=== PATIENT | female | born 1975 | race Caucasian/White ===

== ENCOUNTER 2017-10-10 16:39 | Observation (INO) | payer MEDICAID ==
[~2017-10-10] VITALS: Ht 157.5 cm; Wt 75.0 kg
[2017-10-10 16:59] VITALS: BP 114/78; PULSE 70; RESP 16; TEMP 98.7; O2SAT 100
[2017-10-10] MEDS ORDERED: PRED10 PO (17:24)
[2017-10-10] MEDS ORDERED: GABA300C5 PO (17:24)
--- NOTE | 2017-10-10 18:26 | PD ---
HPI Chief Complaint: Headache Time Seen by Provider: 18:00 Travel History International Travel<30 days: No Contact w/Intl Traveler<30days: No Traveled to known affect area: No History of Present Illness HPI 42-year-old female complains of right-sided headache, right sided neck pain, weakness of the right arm right leg and numbness and tingling sensation of the right arm right leg. Patient states that the symptoms started 4 days ago. Patient states that she woke up with it. Patient was seen at [facility] in [place] 4 days ago. Patient states that she was admitted and had CT scan of the brain, MRI done and blood test done at that time. Patient also had carotid ultrasound done at that time. 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 Patient was given prescription for gabapentin and prednisone. Patient states that she had persistent symptoms despite taking the medication. Patient states that the right-sided headache is burning pain localized the right side of forehead, the right side the neck. Patient denies any visual change. Patient denies any nausea vomiting. Patient denies any drooping or weakness of the muscle of the face. Patient denies any chest pain or shortness of breath. Patient denies abdominal pain. Patient states that she has numbness tingling sensation in the right arm right leg and along with a weakness of the right arm and right leg. Patient denies any nausea vomiting diarrhea. Patient denies any fever chills. Patient denies any back pain. Patient denies any recent injury. Patient is on Depo shot. Patient denies history of hypertension, diabetes, hyperlipidemia. Patient is a non-smoker. Patient denies alcohol use. PFSH Past Medical History Neurologic: Yes (BELLS PALSY) Tetanus Vaccination: < 5 Years ?: Not Past Surgical History Cholecystectomy: Yes Social History Alcohol Use: No Tobacco Use: No Substance Use: No Allergies-Medications (Allergen,Severity, Reaction): Coded Allergies: gabapentin (Verified Adverse Reaction, Mild, 10/10/17) Reported Meds & Prescriptions Reported Meds & Active Scripts Active Reported Prednisone 10 Mg Tab 10 Mg PO DAILY Gabapentin 300 Mg Cap 300 Mg PO HS Review of Systems General / Constitutional: No: Fever Eyes: No: Visual changes HENT: Positive: Headaches, Neck Pain Cardiovascular: No: Chest Pain or Discomfort Respiratory: No: Shortness of Breath Gastrointestinal: No: Abdominal Pain Genitourinary: No: Dysuria Musculoskeletal: Positive: Weakness, No: Pain Skin: No Rash Neurologic: Positive: Weakness, Paresthesia Psychiatric: No: Depression Endocrine: No: Polydipsia Hematologic/Lymphatic: No: Easy Bruising Physical Exam Narrative GENERAL: Well-nourished, well-developed patient. SKIN: Focused skin assessment warm/dry. HEAD: Normocephalic. No rash noted on the right side of face. EYES: No scleral icterus. No injection or drainage. Pupils 2 mm equal reactive. NECK: Supple, trachea midline. No JVD or lymphadenopathy. CARDIOVASCULAR: Regular rate and rhythm without murmurs, gallops, or rubs. RESPIRATORY: Breath sounds equal bilaterally. No accessory muscle use. GASTROINTESTINAL: Abdomen soft, non-tender, nondistended. MUSCULOSKELETAL: No cyanosis, or edema. BACK: Nontender without obvious deformity. No CVA tenderness. Neurologic exam: Patient is awake and alert oriented 3. Patient has decreased light touch sensation on the right on the right leg. Patient has mild weakness on the right arm right leg. Patient is able to lift the right arm off the bed and the right leg off the bed. Data Data Last Documented VS Vital Signs Date Time Temp Pulse Resp B/P (MAP) Pulse Ox O2 Delivery O2 Flow Rate FiO2 10/10/17 19:59 20 98 Room Air 10/10/17 16:59 98.7 70 114/78 (90) Orders Orders Electrocardiogram (10/10/17 18:26) Complete Blood Count With Diff (10/10/17 18:26) Comprehensive Metabolic Panel (10/10/17 18:26) Prothrombin Time / Inr (Pt) (10/10/17 18:26) Act Partial Throm Time (Ptt) (10/10/17 18:26) C-Reactive Protein (Crp) (10/10/17 18:26) Urinalysis - C+S If Indicated (10/10/17 18:26) Westergren Sedimentation Rate (10/10/17 18:26) Thyroid Stimulating Hormone (10/10/17 18:26) Chest, Single Ap (10/10/17 18:26) Iv Access Insert/Monitor (10/10/17 18:26) Ecg Monitoring (10/10/17 18:26) Oximetry (10/10/17 18:26) Drug Screen, Random Urine (10/10/17 18:26) Mri Brain W&W/O Contrast (10/10/17 18:26) Mra Brain W/O Contrast (Cow) (10/10/17 18:26) Mra Carotids W Contrast (10/10/17 18:26) Mri C Spine W&W/O Contrast (10/10/17 ) Lorazepam Inj (Ativan Inj) (10/10/17 20:00) Gadodiamide Pf Inj (Omniscan Pf Inj) (10/10/17 20:43) Labs Laboratory Tests Test 10/10/17 18:40 White Blood Count 14.5 TH/MM3 Red Blood Count 4.73 MIL/MM3 Hemoglobin 13.9 GM/DL Hematocrit 41.7 % Mean Corpuscular Volume 88.3 FL Mean Corpuscular Hemoglobin 29.4 PG Mean Corpuscular Hemoglobin Concent 33.3 % Red Cell Distribution Width 13.8 % Platelet Count 256 TH/MM3 Mean Platelet Volume 8.9 FL Neutrophils (%) (Auto) 45.5 % Lymphocytes (%) (Auto) 42.8 % Monocytes (%) (Auto) 5.8 % Eosinophils (%) (Auto) 5.0 % Basophils (%) (Auto) 0.9 % Neutrophils # (Auto) 6.6 TH/MM3 Lymphocytes # (Auto) 6.2 TH/MM3 Monocytes # (Auto) 0.8 TH/MM3 Eosinophils # (Auto) 0.7 TH/MM3 Basophils # (Auto) 0.1 TH/MM3 CBC Comment AUTO DIFF Differential Total Cells Counted 100 Neutrophils % (Manual) 49 % Lymphocytes % 45 % Monocytes % 3 % Eosinophils % 3 % Neutrophils # (Manual) 7.1 TH/MM3 Differential Comment FINAL DIFF MANUAL Platelet Estimate NORMAL Platelet Morphology Comment NORMAL Erythrocyte Sedimentation Rate 12 mm/hr Prothrombin Time 9.9 SEC Prothromb Time International Ratio 1.0 RATIO Activated Partial Thromboplast Time 22.7 SEC Urine Color YELLOW Urine Turbidity HAZY Urine pH 6.0 Urine Specific [place] 1.024 Urine Protein NEG mg/dL Urine Glucose (UA) NEG mg/dL Urine Ketones NEG mg/dL Urine Occult Blood TRACE Urine Nitrite NEG Urine Bilirubin NEG Urine Urobilinogen LESS THAN 2.0 MG/DL Urine Leukocyte Esterase SMALL Urine RBC 4 /hpf Urine WBC 4 /hpf Urine Squamous Epithelial Cells 2 /hpf Urine Calcium Oxalate Crystals MOD /hpf Urine Bacteria RARE /hpf Urine Mucus FEW /lpf Microscopic Urinalysis Comment CULT NOT INDICATED Blood Urea Nitrogen 11 MG/DL Creatinine 0.63 MG/DL Random Glucose 86 MG/DL Total Protein 7.6 GM/DL Albumin 3.7 GM/DL Calcium Level 9.0 MG/DL Alkaline Phosphatase 82 U/L Aspartate Amino Transf (AST/SGOT) 44 U/L Alanine Aminotransferase (ALT/SGPT) 95 U/L Total Bilirubin 0.3 MG/DL Sodium Level 141 MEQ/L Potassium Level 3.8 MEQ/L Chloride Level 106 MEQ/L Carbon Dioxide Level 27.0 MEQ/L Anion Gap 8 MEQ/L Estimat Glomerular Filtration Rate 103 ML/MIN C-Reactive Protein LESS THAN 0.29 MG/DL Thyroid Stimulating Hormone 3rd Gen 3.190 uIU/ML Urine Opiates Screen NEG Urine Barbiturates Screen POS Urine Amphetamines Screen NEG Urine Benzodiazepines Screen NEG Urine Cocaine Screen NEG Urine Cannabinoids Screen NEG MDM Medical Decision Making Medical Screen Exam Complete: Yes Emergency Medical Condition: Yes Interpretation(s) 2023 PM. CBC WBC 14.5. Hemoglobin 13.9 hematocrit 41.7. 45 lymphocytes. CMP within normal limits. AST 44. ALT 95. TSH normal. Urine drug screen positive for barbiturates. UA positive for 4 RBC, 4 WBC, rare bacteria. 21:38 PM. Last Impressions Neck Magnetic Resonance Angiography 10/10/171825 Signed Impressions: CONCLUSION: 1. Negative MRA carotids. Percent stenosis is calculated using the diameter of the stenotic region over t he diameter of the normal distal internal carotid artery Head Magnetic Resonance Angiography 10/10/171825 Signed Impressions: CONCLUSION: 1. MRA brain within normal limits for age. Chest X-Ray 10/10/171825 Signed Impressions: CONCLUSION: No active disease. Brain MRI 10/10/171825 Signed Impressions: CONCLUSION: 1. Examination within normal limits for age. Cervical Spine MRI 10/10/17 0000 Signed Impressions: CONCLUSION: 1. Negative MRI of the cervical spine with and without contrast. Differential Diagnosis Differential diagnosis including neuralgia, TIA, CVA. Narrative Course 42-year-old female complains of burning sensation on the right side of the head and the face, burning sensation in the right-sided neck, weakness and numbness and tingling sensation in the right arm and right leg. Patient was admitted and had full workup at [facility]. Patient states that she was diagnosed with Hoffmann's palsy. Diagnosis Primary Impression: Right sided weakness Additional Impression: Cephalgia Qualified Codes: R51 - Headache Admitting Information Admitting Physician Requests: Observation Alcides Ulloa MD October 10, 2017 18:26
--- NOTE | 2017-10-10 18:47 | RADRPT ---
EXAM DATE: 10/10/2017 6:43 PM EDT AGE/SEX: 42 years / Female INDICATIONS: Short of breath CLINICAL DATA: This is the patient's initial encounter. Patient reports that signs and symptoms have been present for 4 - 6 days and indicates a pain score of 0/10. MEDICAL/SURGICAL HISTORY: None. None. COMPARISON: No prior [place] exams available for comparison. FINDINGS: A single AP view of the chest demonstrates the lungs to be symmetrically aerated without evidence of mass, infiltrate or effusion. The cardiomediastinal contours are unremarkable. Osseous structures a re intact. CONCLUSION: No active disease. Electronically signed by: Nikko Aiken MD 10/10/2017 6:45 PM EDT
[2017-10-10 19:18] LABS: AUTOMATED NEUTROPHIL # 6.6 TH/MM3 (1.8-7.7); BASOPHIL # 0.1 TH/MM3 (0-0.2); BASOPHIL % 0.9 % (0.0-2.0); EOSINOPHIL # 0.7 TH/MM3 (0-0.4); HEMATOCRIT 41.7 % (35.0-46.0); HEMOGLOBIN 13.9 GM/DL (11.6-15.3); LYMPH % 42.8 % (9.0-44.0); LYMPHOCYTE # 6.2 TH/MM3 (1.0-4.8); MEAN CELL VOLUME 88.3 FL (80.0-100.0); MEAN CORPUSCULAR HEMOGLOBIN 29.4 PG (27.0-34.0); MEAN CORPUSCULAR HGB CONC 33.3 % (32.0-36.0); MEAN PLATELET VOLUME 8.9 FL (7.0-11.0); MONO % 5.8 % (0.0-8.0); MONOCYTE # 0.8 TH/MM3 (0-0.9); NEUT % 45.5 % (16.0-70.0); PLATELET COUNT 256 TH/MM3 (150-450); RED BLOOD COUNT 4.73 MIL/MM3 (4.00-5.30); RED CELL DISTRIBUTION WIDTH 13.8 % (11.6-17.2); WHITE BLOOD COUNT 14.5 TH/MM3 (4.0-11.0)
[2017-10-10 19:25] LABS: PROTHROMBIN TIME - PATIENT 9.9 SEC (9.8-11.6)
[2017-10-10 19:26] LABS: BACTERIA, URINE RARE /hpf; BILIRUBIN, URINE NEG (NEG); BLOOD, URINE TRACE (NEG); CALCIUM OXALATE CRYSTALS,URINE MOD /hpf; GLUCOSE,URINE NEG (NEG); KETONE, URINE NEG (NEG); MUCUS URINE FEW /lpf (OCC); NITRITE,URINE NEG (NEG); SQUAMOUS EPITHELIAL CELL URINE 2 /hpf (0-5); URINE COLOR YELLOW (YELLW/STRAW); URINE LEUKOCYTE ESTERASE SMALL (NEG)
[2017-10-10 19:37] LABS: ALBUMIN 3.7 GM/DL (3.4-5.0); AST (GOT) 44 U/L (15-37); BLOOD UREA NITROGEN 11 MG/DL (7-18); CHLORIDE 106 MEQ/L (98-107); CREATININE 0.63 MG/DL (0.50-1.00); GLOMERULAR FILTRATION RATE 103 ML/MIN (>89); GLUCOSE,RANDOM 86 MG/DL (74-106); SODIUM (NA) 141 MEQ/L (136-145)
[2017-10-10 19:38] LABS: ALT (GPT) 95 U/L (10-53); C-REACTIVE PROTEIN LESS THAN 0.29 MG/DL (0.00-0.30)
[2017-10-10 19:47] LABS: ALKALINE PHOSPHATASE 82 U/L (45-117); TOTAL BILIRUBIN ADULT 0.3 MG/DL (0.2-1.0); TOTAL PROTEIN 7.6 GM/DL (6.4-8.2)
[2017-10-10 19:59] VITALS: RESP 20; O2SAT 98
[2017-10-10] MEDS ORDERED: LORazepam 2 MG/ML VIAL IV PUSH ONE (20:00)
[2017-10-10 20:16] LABS: LYMPHOCYTES 45 % (9-44); MONOCYTES 3 % (0-8); NEUTROPHIL # MANUAL DIFF 7.1 TH/MM3 (1.8-7.7); POLYS (SEG NEUTROPHILS) 49 % (16-70)
[2017-10-10] MEDS ORDERED: GADODIAMIDE PF 287 MG/ML 20 ML VIAL (for RAD MRI) IVCONTRAST ONE (20:43)
--- NOTE | 2017-10-10 20:58 | RADRPT ---
EXAM DATE: 10/10/2017 8:37 PM EDT AGE/SEX: 42 years / Female INDICATIONS: Left sided weakness. Facial pain. CLINICAL DATA: This is the patient's initial encounter. Patient reports that signs and symptoms have been present for 1 day and indicates a pain score of 4/10. MEDICAL/SURGICAL HISTORY: None. Cholecystectomy. COMPARISON: No prior [facility] exams available for comparison. TECHNIQUE: 3D [id number] MRA was performed. Source images, multiplanar STS MIP, and 3D volum e MIP reconstructions were reviewed. FINDINGS: There is excellent visualization of the major intracranial arteries out to the second-order branch ve ssels. There is no evidence for aneurysm, vessel truncation or stenosis, and no evidence for vascula r malformation. CONCLUSION: 1. MRA brain within normal limits for age. Electronically signed by: Nikko Aiken MD 10/10/2017 8:57 PM EDT
--- NOTE | 2017-10-10 21:19 | RADRPT ---
EXAM DATE: 10/10/2017 9:11 PM EDT AGE/SEX: 42 years / Female INDICATIONS: Left sided weakness. Facial pain. CLINICAL DATA: This is the patient's initial encounter. Patient reports that signs and symptoms have been present for 1 day and indicates a pain score of 4/10. MEDICAL/SURGICAL HISTORY: None. Cholecystectomy. COMPARISON: No prior [facility] exams available for comparison. TECHNIQUE: Multiplanar, multisequence examination of the brain was performed without and with 20cc ml Omniscan (gadodiamide) contrast as a single exam dose. FINDINGS: No intracranial mass or shift. No hydrocephalus. No abnormal extra-axial fluid collections. Postcontr ast there is no abnormal enhancement. No recent infarct. CONCLUSION: 1. Examination within normal limits for age. Electronically signed by: Nikko Aiken MD 10/10/2017 9:18 PM EDT
--- NOTE | 2017-10-10 21:20 | RADRPT ---
EXAM DATE: 10/10/2017 9:12 PM EDT AGE/SEX: 42 years / Female INDICATIONS: Weakness. Facial pain. Left side weakness. CLINICAL DATA: This is the patient's initial encounter. Patient reports that signs and symptoms have been present for 1 day and indicates a pain score of 4/10. MEDICAL/SURGICAL HISTORY: None. Cholecystectomy. COMPARISON: No prior [facility] exams available for comparison. TECHNIQUE: Multiplanar, multisequence MRI examination of the cervical spine was performed without an d with 20 cc ml Omniscan (gadodiamide) contrast as a single exam dose. FINDINGS: There is normal alignment of the cervical spine. No fracture or spondylolisthesis. No discrete disc p rotrusions. There is no canal or foraminal stenosis. Postcontrast images reveal no abnormal enhancing lesions. No cord signal abnormality. CONCLUSION: 1. Negative MRI of the cervical spine with and without contrast. Electronically signed by: Nikko Aiken MD 10/10/2017 9:19 PM EDT
--- NOTE | 2017-10-10 21:30 | RADRPT ---
EXAM DATE: 10/10/2017 9:19 PM EDT AGE/SEX: 42 years / Female INDICATIONS: Left sided weakness. Facial pain. CLINICAL DATA: This is the patient's initial encounter. Patient reports that signs and symptoms have been present for 1 day and indicates a pain score of 4/10. MEDICAL/SURGICAL HISTORY: None. Cholecystectomy. COMPARISON: No prior [place] exams available for comparison. TECHNIQUE: 20cc ml Omniscan (gadodiamide) contrast infused MRA (single exam dose) of the extracrani al circulation was performed using a neurovascular coil. Postprocessing was performed, including rot ating sub-volume maximum intensity projections of each carotid artery, rotating full-volume maximum i ntensity projections of both carotid arteries, sagittal and coronal sliding thin-slab reformations of each carotid artery, and left oblique sliding thin-slab reformation through the aortic arch to inclu de the origin of the arch branch vessels. FINDINGS: Grade vessel origins are patent. Common carotid and internal carotid arteries are patent. There is no stenosis. Both vertebral arteries are patent within the neck with the right vertebral dominant. CONCLUSION: 1. Negative MRA carotids. Percent stenosis is calculated using the diameter of the stenotic region over the diameter of the nor mal distal internal carotid artery Electronically signed by: Nikko Aiken MD 10/10/2017 9:29 PM EDT
[2017-10-10] MEDS ORDERED: ACETAMINOPHEN 325 MG TAB PO PRN (22:00)
[2017-10-10] MEDS ORDERED: MAGNESIUM HYDROXIDE SUSP 30 ML CUP PO PRN (22:00)
[2017-10-10] MEDS ORDERED: NALOXONE HCL 0.4 MG/ML AMP IV PUSH PRN (22:00)
[2017-10-10] MEDS ORDERED: BISACODYL 10 MG SUPP RECTAL PRN (22:00)
[2017-10-10] MEDS ORDERED: SENNOSIDES 8.6 MG TAB PO PRN (22:00)
[2017-10-10] MEDS ORDERED: SODIUM CHLORIDE 0.9% FLUSH 10 ML FLUSH IV FLUSH PRN (22:00)
[2017-10-10] MEDS ORDERED: LACTULOSE SYRUP 20 GM/30 ML CUP PO PRN (22:00)
[2017-10-10 22:39] VITALS: BP 110/70; PULSE 82; RESP 18; O2SAT 98
[2017-10-10] MEDS: SODIUM CHLOR 0.9% 1000 ML INJ 1,000 ML IV SCH (22:53)
--- NOTE | 2017-10-10 22:55 | HHI.HP ---
HPI Service [facility] Primary Care Physician Wander Jane MD Admission Diagnosis Right-sided weakness. Cephalgia. Diagnoses: Chief Complaint: Right-sided headache, right-sided weakness. Travel History International Travel<30 Days: No Contact w/Intl Traveler <30 Da: No Traveled to Known Affected Are: No History of Present Illness Ms. Vazquez is a 42-year-old female with no significant medical history who presents to the emergency department on 10/10/2017 due to right-sided weakness and right-sided headache that started on 10/06/2017. On , 10/06/2017 patient started having numbness and weakness of the right side as well as right- sided headache. Upon advice of her primary care physician, she went to a local hospital -[facility] where she was diagnosed with Hoffmann's palsy and was discharged the following day 10/07/2017 on prednisone and gabapentin. Patient does not recall seeing a neurologist. Due to persistent symptoms, patient decided to come to the emergency department. She denies any chest pain , shortness of breath, fever or chills. No changes in bowel or bladder habits. Review of Systems Except as stated in HPI: all other systems reviewed are Neg Past Family Social History Past Medical History Possible Hoffmann's palsy Past Surgical History Cholecystectomy Reported Medications Gabapentin 300 mg nightly Prednisone probably 40 mg daily. Allergies: Coded Allergies: gabapentin (Verified Adverse Reaction, Mild, 10/10/17) Family History No family history of cancer or heart disease. Social History Denies using tobacco, alcohol, illicit drugs. Physical Exam Vital Signs Vital Signs Date Time Temp Pulse Resp B/P (MAP) Pulse Ox O2 Delivery O2 Flow Rate FiO2 10/10/17 19:59 20 98 Room Air 10/10/17 16:59 98.7 70 16 114/78 (90) 100 Physical Exam GENERAL: This is a well-nourished, well-developed patient, in no apparent distress. SKIN: No rashes, ecchymoses or lesions. Warm and dry. HEAD: Atraumatic. Normocephalic. No temporal or scalp tenderness. EYES: Pupils equal round and reactive. No injection or drainage. ENT: Nose without bleeding, purulent drainage or septal hematoma. Airway patent. NECK: Trachea midline. No lymphadenopathy. Supple, nontender, no meningeal signs. CARDIOVASCULAR: Regular rate and rhythm without murmurs, gallops, or rubs. No JVD. RESPIRATORY: Clear to auscultation. Breath sounds equal bilaterally. No wheezes , rales, or rhonchi. GASTROINTESTINAL: Abdomen soft, non-tender, nondistended. No guarding. MUSCULOSKELETAL: Extremities without clubbing, cyanosis, or edema. NEUROLOGICAL: Awake and alert. Visible right-sided facial droop as well as right eye somewhat widened. Right-sided upper and lower extremity weakness noted strength is about 3/5. Normal exam on the left side. Able to close both eyes. Unable to do purse lips. No rash or lesions noted behind ears. Laboratory Laboratory Tests Test 10/10/17 18:40 White Blood Count 14.5 Red Blood Count 4.73 Hemoglobin 13.9 Hematocrit 41.7 Mean Corpuscular Volume 88.3 Mean Corpuscular Hemoglobin 29.4 Mean Corpuscular Hemoglobin Concent 33.3 Red Cell Distribution Width 13.8 Platelet Count 256 Mean Platelet Volume 8.9 Neutrophils (%) (Auto) 45.5 Lymphocytes (%) (Auto) 42.8 Monocytes (%) (Auto) 5.8 Eosinophils (%) (Auto) 5.0 Basophils (%) (Auto) 0.9 Neutrophils # (Auto) 6.6 Lymphocytes # (Auto) 6.2 Monocytes # (Auto) 0.8 Eosinophils # (Auto) 0.7 Basophils # (Auto) 0.1 CBC Comment AUTO DIFF Differential Total Cells Counted 100 Neutrophils % (Manual) 49 Lymphocytes % 45 Monocytes % 3 Eosinophils % 3 Neutrophils # (Manual) 7.1 Differential Comment FINAL DIFF MANUAL Platelet Estimate NORMAL Platelet Morphology Comment NORMAL Erythrocyte Sedimentation Rate 12 Prothrombin Time 9.9 Prothromb Time International Ratio 1.0 Activated Partial Thromboplast Time 22.7 Urine Color YELLOW Urine Turbidity HAZY Urine pH 6.0 Urine Specific [place] 1.024 Urine Protein NEG Urine Glucose (UA) NEG Urine Ketones NEG Urine Occult Blood TRACE Urine Nitrite NEG Urine Bilirubin NEG Urine Urobilinogen LESS THAN 2.0 Urine Leukocyte Esterase SMALL Urine RBC 4 Urine WBC 4 Urine Squamous Epithelial Cells 2 Urine Calcium Oxalate Crystals MOD Urine Bacteria RARE Urine Mucus FEW Microscopic Urinalysis Comment CULT NOT INDICATED Blood Urea Nitrogen 11 Creatinine 0.63 Random Glucose 86 Total Protein 7.6 Albumin 3.7 Calcium Level 9.0 Alkaline Phosphatase 82 Aspartate Amino Transf (AST/SGOT) 44 Alanine Aminotransferase (ALT/SGPT) 95 Total Bilirubin 0.3 Sodium Level 141 Potassium Level 3.8 Chloride Level 106 Carbon Dioxide Level 27.0 Anion Gap 8 Estimat Glomerular Filtration Rate 103 C-Reactive Protein LESS THAN 0.29 Thyroid Stimulating Hormone 3rd Gen 3.190 Urine Opiates Screen NEG Urine Barbiturates Screen POS Urine Amphetamines Screen NEG Urine Benzodiazepines Screen NEG Urine Cocaine Screen NEG Urine Cannabinoids Screen NEG Result Diagram: 10/10/17183910/10/171839 Imaging Last Impressions Neck Magnetic Resonance Angiography 10/10/171825 Signed Impressions: CONCLUSION: 1. Negative MRA carotids. Percent stenosis is calculated using the diameter of the stenotic region over t he diameter of the normal distal internal carotid artery Head Magnetic Resonance Angiography 10/10/171825 Signed Impressions: CONCLUSION: 1. MRA brain within normal limits for age. Chest X-Ray 10/10/171825 Signed Impressions: CONCLUSION: No active disease. Brain MRI 10/10/171825 Signed Impressions: CONCLUSION: 1. Examination within normal limits for age. Cervical Spine MRI 10/10/17 0000 Signed Impressions: CONCLUSION: 1. Negative MRI of the cervical spine with and without contrast. Caprini VTE Risk Assessment Caprini VTE Risk Assessment: No/Low Risk (score <= 1) Caprini Risk Assessment Model Point Value = 1 Point Value = 2 Point Value = 3 Point Value = 5 Age 41-60 Minor surgery BMI > 25 kg/m2 Swollen legs Varicose veins or History of unexplained or recurrent spontaneous Oral contraceptives or hormone replacement Sepsis (< 1 month) Serious lung disease, including pneumonia (< 1 month) Abnormal pulmonary function Acute myocardial infarction Congestive heart failure (< 1 month) History of inflammatory bowel disease Medical patient at bed rest Age 61-74 Arthroscopic surgery Major open surgery (> 45 min) Laparoscopic surgery (> 45 min) Malignancy Confined to bed (> 72 hours) Immobilizing plaster cast Central venous access Age >= 75 History of VTE Family history of VTE Factor V Leiden Prothrombin [id number] Lupus anticoagulant Anticardiolipin antibodies Elevated serum homocysteine Heparin-induced thrombocytopenia Other congenital or acquired thrombophilia Stroke (< 1 month) Elective arthroplasty Hip, pelvis, or leg fracture Acute spinal cord injury (< 1 month) Prophylaxis Regimen Total Risk Factor Score Risk Level Prophylaxis Regimen 0-1 Low Early ambulation 2 Moderate Order ONE of the following: *Sequential Compression Device (SCD) *Heparin 5000 units SQ BID 3-4 Higher Order ONE of the following medications: *Heparin 5000 units SQ TID *Enoxaparin/Lovenox 40 mg SQ daily (WT < 150 kg, CrCl > 30 mL/min) *Enoxaparin/Lovenox 30 mg SQ daily (WT < 150 kg, CrCl > 10-29 mL/min) *Enoxaparin/Lovenox 30 mg SQ BID (WT < 150 kg, CrCl > 30 mL/min) AND/OR *Sequential Compression Device (SCD) 5 or more Highest Order ONE of the following medications: *Heparin 5000 units SQ TID (Preferred with Epidurals) *Enoxaparin/Lovenox 40 mg SQ daily (WT < 150 kg, CrCl > 30 mL/min) *Enoxaparin/Lovenox 30 mg SQ daily (WT < 150 kg, CrCl > 10-29 mL/min) *Enoxaparin/Lovenox 30 mg SQ BID (WT < 150 kg, CrCl > 30 mL/min) AND *Sequential Compression Device (SCD) Assessment and Plan Problem List: (1) Hoffmann's palsy ICD Code: G51.0 - Hoffmann's palsy (2) Right sided weakness ICD Code: R53.1 - Weakness Status: Acute Assessment and Plan Ms. Vazquez is a pleasant 42-year-old female with no significant medical history who presents to the emergency department today due to persistent right-sided weakness, right-sided facial droop and right eye widening. Probable Hoffmann's Palsy Right sided Headache -Neurology consulted. -Will start patient on Prednisone 50mg Qday x 5 days then taper. She took 40mg of Prednisone today. -Start Valcyclovir 1g TID X 7 days. -Fioricet for Headache. Patient reports no relief of headache with Acetaminophen, NSAIDs. -Artificial tears for the right eye. Full code. SCDs. Kami Dunlap DO October 10, 2017 10:55 pm
[2017-10-10] MEDS: ACETAMIN 325 MG/BUTALBITAL 50 MG/CAFFEINE 40 MG TAB PO PRN (23:14)
[2017-10-10] MEDS ORDERED: ARTIFICIAL TEARS OPTH SOLN 15 ML BTL RIGHT EYE PRN (23:15)
[2017-10-10] MEDS ORDERED: valACYclovir HCL 500 MG TAB PO ONE (23:15)
[2017-10-10 23:28] VITALS: BP 128/76; PULSE 93; O2SAT 97
[2017-10-11 04:35] VITALS: BP 125/79; PULSE 118; RESP 16; TEMP 98.4; O2SAT 98
[2017-10-11] MEDS: valACYclovir HCL 500 MG TAB PO SCH ×3 (05:57→21:24)
[2017-10-11 08:08] VITALS: BP 111/66; PULSE 99; RESP 18; TEMP 98.4; O2SAT 95
[2017-10-11 08:17] VITALS: O2SAT 96
[2017-10-11] MEDS: SODIUM CHLORIDE 0.9% FLUSH 10 ML FLUSH IV FLUSH SCH ×2 (09:01→21:00)
[2017-10-11] MEDS: ACETAMIN 325 MG/BUTALBITAL 50 MG/CAFFEINE 40 MG TAB PO PRN ×2 (09:01→17:44)
[2017-10-11] MEDS: predniSONE 50 MG TAB PO SCH (09:02)
[2017-10-11] MEDS: SODIUM CHLOR 0.9% 1000 ML INJ 1,000 ML IV SCH (10:54)
[2017-10-11 12:28] VITALS: BP 118/70; PULSE 79; RESP 18; TEMP 97.8; O2SAT 99
[2017-10-11] MEDS ORDERED: MORPHINE SULFATE 2 MG/ML SYRINGE IV PUSH ONE (13:45)
--- NOTE | 2017-10-11 13:47 | HHI.PR ---
Subjective Remarks Follow up facial numbness, headache. Patient reports significant pain in the right occipital region. She still has facial droop and tongue numbness. Denies extremity numbness, weakness. Objective Vitals Vital Signs Date Time Temp Pulse Resp B/P (MAP) Pulse Ox O2 Delivery O2 Flow Rate FiO2 10/11/17 12:28 97.8 79 18 118/70 (86) 99 10/11/17 08:17 96 21 10/11/17 08:08 98.4 99 18 111/66 (81) 95 10/11/17 04:35 98.4 118 16 125/79 (94) 98 10/11/17 00:14 15 10/10/17 23:28 93 128/76 (93) 97 10/10/17 22:39 82 18 110/70 (83) 98 Room Air 10/10/17 19:59 20 98 Room Air 10/10/17 16:59 98.7 70 16 114/78 (90) 100 Result Diagram: 10/10/17183910/10/171839 Imaging Last Impressions Neck Magnetic Resonance Angiography 10/10/171825 Signed Impressions: CONCLUSION: 1. Negative MRA carotids. Percent stenosis is calculated using the diameter of the stenotic region over t he diameter of the normal distal internal carotid artery Head Magnetic Resonance Angiography 10/10/171825 Signed Impressions: CONCLUSION: 1. MRA brain within normal limits for age. Chest X-Ray 10/10/171825 Signed Impressions: CONCLUSION: No active disease. Brain MRI 10/10/171825 Signed Impressions: CONCLUSION: 1. Examination within normal limits for age. Cervical Spine MRI 10/10/17 0000 Signed Impressions: CONCLUSION: 1. Negative MRI of the cervical spine with and without contrast. Objective Remarks General: No acute distress. Heart: Regular rate and rhythm. No murmur. Lungs: Clear to auscultation bilaterally. No wheezes, rales, or rhonchi. Breathing is nonlabored. Abdomen: Soft, nontender, nondistended. Extremities: No lower extremity edema. Psych: Alert and oriented. Neuro: Normal speech. Right-sided facial droop is noted. 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 Probable Hoffmann's palsy: Patient has right-sided headache, which is not improving. Will give one-time dose of morphine. Neurology consult is pending. Had workup in [place]. Will attempt to obtain records. Continue steroids, Valacyclovir, gabapentin. 2. Leukocytosis: Likely due to steroids. 3. DVT prophylaxis: SCDs. Nahun Gomez MD October 11, 2017 13:47
--- NOTE | 2017-10-11 14:02 | EKG ---
Date Performed: 10/10/2017 Time Performed: 18:44:15 PTAGE: 42 years EKG: Sinus rhythm NORMAL ECG NO PREVIOUS TRACING DOCTOR: Chu Davila Interpretating Date/Time 10/11/2017 14:00:06
[2017-10-11] MEDS ORDERED: MORPHINE SULFATE 4 MG/ML INJ IV PUSH ONE (14:30)
[2017-10-11] MEDS: NS + KCL 20 MEQ INJ 1,000 ML IV SCH (14:32)
--- NOTE | 2017-10-11 15:35 | MB ---
cc: Max Khalil MD, PhD DATE: 10/11/2017 HISTORY OF PRESENT ILLNESS: Ms. Vazquez is a 42-year-old female who last week developed numbness in the left side of her body involving the face and arm, went to the ER at [facility], was thought to have Hoffmann's palsy, was treated with prednisone. Her symptoms persisted and she began to notice weakness on the right side and a right-sided headache and came to the ER here. She still has headache. Denies any speech difficulty. MEDICATIONS: Medications were Gabapentin 300 mg daily and prednisone 40 mg daily. ALLERGIES: "GABAPENTIN". NEUROLOGICAL EXAMINATION: Higher cortical functions are normal. Cranial Nerves: she has mild weakness of right side of the face. She has got giveaway weakness, right arm and right leg compared with the left rated at 4/5 on the right, 5/5 on the left. Reflexes are symmetric. Sensory Exam: Diminished on the right side of her body to all modalities. Reflexes symmetric. There is no Babinski sign present. IMAGING STUDIES: MRI of the brain is normal. MRI of the cervical spine is normal. MRA of the neck negative. No carotid stenosis. MRA brain normal. LABORATORY DATA: White count 14,500, hemoglobin 13.9, hematocrit 41.7%, platelet count 256,000. Sedimentation rate is 12. Sodium is 141, potassium 3.8, chloride 106, CO2 is 27, the BUN is 11, creatinine 0.63, glucose 86, AST 44, ALT 95. PT 9.9, INR 1, aPTT 22.7. Tox screen positive for barbiturates. IMPRESSION: Definitively on exam, she has right facial weakness suggestive of a Hoffmann's palsy. She also relates weakness of right arm and right leg. There is no evidence of any stroke on the MRI. Therefore, this may be migraine variant. RECOMMENDATIONS: We will start her on Topamax 25 mg b.i.d. for her headache, possible migraine. Continue the prednisone taper and Valtrex, also recommend for hypercoagulable state we will check as well an echocardiogram. Consider TODD depending on the above evaluation. Max Khalil MD, PhD ROSANA/SB , 03:17 PM , 03:34 PM
[2017-10-11] MEDS: ASPIRIN EC 81 MG TABEC PO SCH (16:05)
[2017-10-11 16:51] VITALS: BP 117/66; PULSE 100; RESP 18; TEMP 97.8; O2SAT 95
[2017-10-11 20:00] VITALS: BP 111/68; PULSE 109; RESP 20; TEMP 98.9; O2SAT 96
[2017-10-11] MEDS: TOPIRAMATE 25 MG TAB PO SCH (21:24)
[2017-10-12] VITALS (7 sets, daily range): BP systolic 106–131; BP diastolic 60–75; PULSE 84–108; RESP 16–18; TEMP 97.7–98.6; O2SAT 96–98
[2017-10-12] MEDS ORDERED: ACETAMIN 325 MG/BUTALBITAL 50 MG/CAFFEINE 40 MG TAB PO ONE (00:15)
[2017-10-12] MEDS: NS + KCL 20 MEQ INJ 1,000 ML IV SCH ×2 (01:52→14:04)
[2017-10-12] MEDS: valACYclovir HCL 500 MG TAB PO SCH ×3 (05:58→21:44)
[2017-10-12 07:03] LABS: AUTOMATED NEUTROPHIL # 7.2 TH/MM3 (1.8-7.7); BASOPHIL # 0.1 TH/MM3 (0-0.2); BASOPHIL % 0.9 % (0.0-2.0); EOSINOPHIL # 0.6 TH/MM3 (0-0.4); EOSINOPHIL % 3.9 % (0.0-4.0); HEMATOCRIT 38.5 % (35.0-46.0); HEMOGLOBIN 12.9 GM/DL (11.6-15.3); LYMPH % 38.4 % (9.0-44.0); LYMPHOCYTE # 5.5 TH/MM3 (1.0-4.8); MEAN CELL VOLUME 88.7 FL (80.0-100.0); MEAN CORPUSCULAR HEMOGLOBIN 29.8 PG (27.0-34.0); MEAN CORPUSCULAR HGB CONC 33.6 % (32.0-36.0); MEAN PLATELET VOLUME 8.9 FL (7.0-11.0); MONO % 6.6 % (0.0-8.0); NEUT % 50.2 % (16.0-70.0); PLATELET COUNT 249 TH/MM3 (150-450); RED BLOOD COUNT 4.34 MIL/MM3 (4.00-5.30); RED CELL DISTRIBUTION WIDTH 13.5 % (11.6-17.2); WHITE BLOOD COUNT 14.4 TH/MM3 (4.0-11.0)
[2017-10-12 07:29] LABS: ALBUMIN 3.3 GM/DL (3.4-5.0); AST (GOT) 11 U/L (15-37); BICARBONATE 22.7 MEQ/L (21.0-32.0); BLOOD UREA NITROGEN 10 MG/DL (7-18); CHLORIDE 109 MEQ/L (98-107); CREATININE 0.65 MG/DL (0.50-1.00); GLOMERULAR FILTRATION RATE 99 ML/MIN (>89); GLUCOSE,RANDOM 103 MG/DL (74-106); SODIUM (NA) 141 MEQ/L (136-145)
[2017-10-12 07:30] LABS: ALT (GPT) 54 U/L (10-53)
[2017-10-12 07:32] LABS: ALKALINE PHOSPHATASE 77 U/L (45-117); TOTAL BILIRUBIN ADULT 0.4 MG/DL (0.2-1.0); TOTAL PROTEIN 6.7 GM/DL (6.4-8.2)
[2017-10-12] MEDS: SODIUM CHLORIDE 0.9% FLUSH 10 ML FLUSH IV FLUSH SCH ×2 (09:00→21:00)
[2017-10-12 09:03] LABS: BANDS 5 % (0-6); LYMPHOCYTES 37 % (9-44); MONOCYTES 4 % (0-8); NEUTROPHIL # MANUAL DIFF 7.6 TH/MM3 (1.8-7.7); POLYS (SEG NEUTROPHILS) 48 % (16-70)
[2017-10-12] MEDS: predniSONE 50 MG TAB PO SCH (09:20)
[2017-10-12] MEDS: ASPIRIN EC 81 MG TABEC PO SCH (09:20)
[2017-10-12] MEDS: TOPIRAMATE 25 MG TAB PO SCH ×2 (09:21→21:44)
--- NOTE | 2017-10-12 14:15 | EKG ---
Date Performed: 10/11/2017 Time Performed: 15:51:45 PTAGE: 42 years EKG: SINUS TACHYCARDIA ABNORMAL RHYTHM ECG NO PREVIOUS TRACING DOCTOR: Laurent Yeboah Interpretating Date/Time 10/14/2017 07:46:32
--- NOTE | 2017-10-12 15:12 | HHI.PR ---
Subjective Remarks Follow up weakness, numbness. The patient states that she feels a little better today. Still with RUE weakness. Tongue feels numb. Headache improving. Objective Vitals Vital Signs Date Time Temp Pulse Resp B/P (MAP) Pulse Ox O2 Delivery O2 Flow Rate FiO2 10/12/17 10:44 97.8 84 18 127/71 (89) 97 10/12/17 07:01 98.2 86 18 131/73 (92) 97 10/12/17 04:00 98.6 92 18 116/65 (82) 98 10/12/17 03:08 21 10/12/17 00:00 98.1 108 18 106/60 (75) 97 10/11/17 20:00 98.9 109 20 111/68 (82) 96 10/11/17 16:51 97.8 100 18 117/66 (83) 95 I/O 10/11/17 10/11/17 10/11/17 10/12/17 10/12/17 10/12/17 07:00 15:00 23:00 07:00 15:00 23:00 Intake Total 365 ml 240 ml Balance 365 ml 240 ml Intake Oral 365 ml 240 ml # Voids 1 3 # Bowel Movements 1 Result Diagram: 10/12/17 0632 10/12/17 0632 Imaging Last Impressions Neck Magnetic Resonance Angiography 10/10/171825 Signed Impressions: CONCLUSION: 1. Negative MRA carotids. Percent stenosis is calculated using the diameter of the stenotic region over t he diameter of the normal distal internal carotid artery Head Magnetic Resonance Angiography 10/10/171825 Signed Impressions: CONCLUSION: 1. MRA brain within normal limits for age. Chest X-Ray 10/10/171825 Signed Impressions: CONCLUSION: No active disease. Brain MRI 10/10/171825 Signed Impressions: CONCLUSION: 1. Examination within normal limits for age. Cervical Spine MRI 10/10/17 0000 Signed Impressions: CONCLUSION: 1. Negative MRI of the cervical spine with and without contrast. Objective Remarks General: No acute distress. Heart: Regular rate and rhythm. No murmur. Lungs: Clear to auscultation bilaterally. No wheezes, rales, or rhonchi. Breathing is nonlabored. Abdomen: Soft, nontender, nondistended. Extremities: No lower extremity edema. Psych: Alert and oriented. Neuro: Normal speech. Right-sided facial droop is noted. RUE strength decreased compared to LUE. 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 Probable Hoffmann's palsy vs complex migraine: Appreciate neurology recommendations. Echocardiogram pending. Continue steroids, Valacyclovir, Topamax. PT/OT eval. 2. Leukocytosis: Likely due to steroids. No other signs of infection at this time. 3. DVT prophylaxis: SCDs. Discharge Planning Pending further clinical improvement and clearance by neurology. Nahun Gomez MD October 12, 2017 15:12
--- NOTE | 2017-10-12 15:34 | ECHRPT ---
Indication: TIA CONCLUSIONS Normal left ventricular size. EF@ 55% Wall thickness is normal. The left ventricular systolic function is grossly normal on limited imaging. Normal left ventricular size. Wall thickness is normal. The left ventricular systolic function is grossly normal on limited imaging. No atrial level shunt is demonstrated by color flow Doppler interrogation. The transthoracic study is normal by two-dimensional, color flow imaging and Doppler interrogation. BP: 127 / 71 HR: 84 Rhythm: Sinus MEASUREMENTS (Male / Female) Normal Values Technical Quality:Fair 2D ECHO LV Diastolic Diameter PLAX 4.9 cm 4.2 - 5.9 / 3.9 - 5.3 cm LV Systolic Diameter PLAX 3.1 cm IVS Diastolic Thickness 0.7 cm 0.6 - 1.0 / 0.6 - 0.9 cm LVPW Diastolic Thickness 0.7 cm 0.6 - 1.0 / 0.6 - 0.9 cm LV Relative Wall Thickness 0.3 RV Internal Dim ED PLAX 2.5 cm LVOT Diameter 2.0 cm Aortic Root Diameter 2.8 cm LA Systolic Diameter LX 2.6 cm 3.0 - 4.0 / 2.7 - 3.8 cm M-MODE AV Cusp Separation MM 2.1 cm DOPPLER AV Peak Velocity 114.0 cm/s AV Peak Gradient 5.2 mmHg AV Mean Gradient 3.0 mmHg AV Velocity Time Integral 19.2 cm LVOT Peak Velocity 101.0 cm/s LVOT Peak Gradient 4.1 mmHg LVOT Velocity Time Integral 17.3 cm AV Area Cont Eq vti 2.8 cm AV Area Cont Eq pk 2.8 cm Mitral E Point Velocity 58.7 cm/s Mitral A Point Velocity 63.2 cm/s Mitral E to A Ratio 0.9 LV E' Lateral Velocity 12.1 cm/s Mitral E to LV E' Lateral Ratio 4.9 LV E' Septal Velocity 7.6 cm/s Mitral E to LV E' Septal Ratio 7.7 PV Peak Velocity 88.0 cm/s PV Peak Gradient 3.1 mmHg FINDINGS LEFT VENTRICLE Normal left ventricular size. Wall thickness is normal. The left ventricular systolic function is grossly normal on limited imaging. RIGHT VENTRICLE Normal right ventricular size and systolic function. LEFT ATRIUM The left atrial size is normal. RIGHT ATRIUM The right atrial size is normal. ATRIAL SEPTUM No atrial level shunt is demonstrated by color flow Doppler interrogation. AORTA The aortic root and proximal ascending aorta are normal in size on limited imaging. MITRAL VALVE Structurally normal mitral valve. No mitral valve stenosis or regurgitation. AORTIC VALVE Trileaflet aortic valve. No aortic valve stenosis or regurgitation. TRICUSPID VALVE Structurally normal tricuspid valve. No tricuspid valve stenosis or regurgitation. PULMONARY VALVE No pulmonary valve regurgitation or stenosis. VESSELS The inferior vena cava is normal in size. PERICARDIUM No pericardial effusion. Mohan Anne MD, FACC, [facility] (Electronically Signed) Final Date:12 Oct 2017 15:33
--- NOTE | 2017-10-12 19:57 | HHI.PR ---
Review/Management Diagnosis right [place] palsey possible hemiplegic migraine--resolving Plan continue topamax taper prednisone slowly over 10-14 days continue valtrex 10 days Ok to dc home in am if stable from neuro standpoint. Follow up with me as outpatient in 2-3 weeks Diagnosis/Plan: Subjective Subjective Comments No acute events reported Right facial weakness without change Feels normal in strength in UE and LE Active Medications Current Medications Medications (Trade) Dose Ordered Sig/Silvia Route Start Time Stop Time Status Last Admin (NS Flush) 2 ml UNSCH PRN IV FLUSH 10/10/17 22:00 (NS Flush) 2 ml BID IV FLUSH 10/11/17 09:00 10/11/17 09:01 (Tylenol) 650 mg Q4H PRN PO 10/10/17 22:00 10/12/17 17:24 (Narcan Inj) 0.4 mg UNSCH PRN IV PUSH 10/10/17 22:00 (Milk Of Magnesia Liq) 30 ml Q12H PRN PO 10/10/17 22:00 (Senokot) 17.2 mg Q12H PRN PO 10/10/17 22:00 (Dulcolax Supp) 10 mg DAILY PRN RECTAL 10/10/17 22:00 (Lactulose Liq) 30 ml DAILY PRN PO 10/10/17 22:00 (Deltasone) 50 mg DAILY PO 10/11/17 09:00 10/16/17 08:59 10/12/17 09:20 (Valtrex) 1,000 mg Q8HR PO 10/11/17 06:00 10/12/17 14:04 (Tears Naturale Opth Soln) 1 drop Q4H PRN RIGHT EYE 10/10/17 23:15 10/10/17 23:27 Potassium Chloride/Sodium Chloride 1,000 ml @ 84 mls/hr [id number] IV 10/11/17 13:45 10/12/17 14:04 (Topamax) 25 mg Q12HR PO 10/11/17 21:00 10/12/17 09:21 (Ecotrin Ec) 81 mg DAILY PO 10/11/17 15:30 10/12/17 09:20 Allergies Allergies Coded Allergies gabapentin (Verified Adverse Reaction, Mild, 10/10/17) Exam I&O / VS 10/12/17 10/12/17 10/13/17 15:00 23:00 07:00 Intake Total 2354 ml Balance 2354 ml IV Total 2354 ml Vital Signs Date Time Temp Pulse Resp B/P (MAP) Pulse Ox O2 Delivery O2 Flow Rate FiO2 10/12/17 19:53 98 10/12/17 17:11 97.7 102 18 117/68 (84) 96 10/12/17 10:44 97.8 84 18 127/71 (89) 97 10/12/17 07:01 98.2 86 18 131/73 (92) 97 10/12/17 04:00 98.6 92 18 116/65 (82) 98 10/12/17 03:08 21 10/12/17 00:00 98.1 108 18 106/60 (75) 97 10/11/17 20:00 98.9 109 20 111/68 (82) 96 Exam Comments mild right lower motor neuron 7 [place] MOTOR 5/5 BUE and BLE. No drift Objective Micro and Labs Laboratory Tests Test 10/12/17 06:19 10/12/17 06:32 White Blood Count 14.4 Red Blood Count 4.34 Hemoglobin 12.9 Hematocrit 38.5 Mean Corpuscular Volume 88.7 Mean Corpuscular Hemoglobin 29.8 Mean Corpuscular Hemoglobin Concent 33.6 Red Cell Distribution Width 13.5 Platelet Count 249 Mean Platelet Volume 8.9 Neutrophils (%) (Auto) 50.2 Lymphocytes (%) (Auto) 38.4 Monocytes (%) (Auto) 6.6 Eosinophils (%) (Auto) 3.9 Basophils (%) (Auto) 0.9 Neutrophils # (Auto) 7.2 Lymphocytes # (Auto) 5.5 Monocytes # (Auto) 1.0 Eosinophils # (Auto) 0.6 Basophils # (Auto) 0.1 CBC Comment AUTO DIFF Differential Total Cells Counted 100 Neutrophils % (Manual) 48 Band Neutrophils % 5 Lymphocytes % 37 Monocytes % 4 Eosinophils % 6 Neutrophils # (Manual) 7.6 Differential Comment FINAL DIFF MANUAL Platelet Estimate NORMAL Platelet Morphology Comment NORMAL Red Cell Morphology Comment NORMAL Blood Urea Nitrogen 10 Creatinine 0.65 Random Glucose 103 Total Protein 6.7 Albumin 3.3 Calcium Level 9.0 Alkaline Phosphatase 77 Aspartate Amino Transf (AST/SGOT) 11 Alanine Aminotransferase (ALT/SGPT) 54 Total Bilirubin 0.4 Sodium Level 141 Potassium Level 4.0 Chloride Level 109 Carbon Dioxide Level 22.7 Anion Gap 9 Estimat Glomerular Filtration Rate 99 Max Khalil MD PhD October 12, 2017 19:57
[2017-10-13 00:41] VITALS: BP 109/67; PULSE 91; RESP 16; TEMP 98.2; O2SAT 95
[2017-10-13] MEDS: NS + KCL 20 MEQ INJ 1,000 ML IV SCH (01:01)
[2017-10-13 04:19] VITALS: BP 108/61; PULSE 93; RESP 16; TEMP 97.8; O2SAT 96
[2017-10-13] MEDS: valACYclovir HCL 500 MG TAB PO SCH (05:35)
[2017-10-13 07:48] LABS: AUTOMATED NEUTROPHIL # 8.5 TH/MM3 (1.8-7.7); BASOPHIL # 0.1 TH/MM3 (0-0.2); BASOPHIL % 0.7 % (0.0-2.0); EOSINOPHIL # 0.2 TH/MM3 (0-0.4); EOSINOPHIL % 1.5 % (0.0-4.0); HEMATOCRIT 37.8 % (35.0-46.0); HEMOGLOBIN 12.7 GM/DL (11.6-15.3); LYMPHOCYTE # 6.1 TH/MM3 (1.0-4.8); MEAN CELL VOLUME 88.5 FL (80.0-100.0); MEAN CORPUSCULAR HEMOGLOBIN 29.6 PG (27.0-34.0); MEAN CORPUSCULAR HGB CONC 33.5 % (32.0-36.0); MEAN PLATELET VOLUME 9.2 FL (7.0-11.0); MONO % 6.5 % (0.0-8.0); NEUT % 53.3 % (16.0-70.0); PLATELET COUNT 237 TH/MM3 (150-450); RED BLOOD COUNT 4.27 MIL/MM3 (4.00-5.30); RED CELL DISTRIBUTION WIDTH 13.7 % (11.6-17.2)
[2017-10-13 08:11] LABS: ALBUMIN 3.3 GM/DL (3.4-5.0); AST (GOT) 10 U/L (15-37); BICARBONATE 17.5 MEQ/L (21.0-32.0); BLOOD UREA NITROGEN 13 MG/DL (7-18); CHLORIDE 112 MEQ/L (98-107); CREATININE 0.67 MG/DL (0.50-1.00); GLOMERULAR FILTRATION RATE 96 ML/MIN (>89); GLUCOSE,RANDOM 89 MG/DL (74-106); SODIUM (NA) 141 MEQ/L (136-145)
[2017-10-13 08:14] LABS: ALKALINE PHOSPHATASE 76 U/L (45-117); ALT (GPT) 46 U/L (10-53); TOTAL BILIRUBIN ADULT 0.4 MG/DL (0.2-1.0); TOTAL PROTEIN 6.9 GM/DL (6.4-8.2)
[2017-10-13 08:37] VITALS: BP 121/69; PULSE 83; RESP 20; TEMP 98.1; O2SAT 95
[2017-10-13] MEDS: SODIUM CHLORIDE 0.9% FLUSH 10 ML FLUSH IV FLUSH SCH (09:00)
[2017-10-13] MEDS: TOPIRAMATE 25 MG TAB PO SCH (09:20)
[2017-10-13] MEDS: ASPIRIN EC 81 MG TABEC PO SCH (09:20)
[2017-10-13] MEDS: predniSONE 50 MG TAB PO SCH (09:21)
[2017-10-13 09:42] LABS: BANDS 3 % (0-6); BASOPHILS 2 % (0-2); LYMPHOCYTES 43 % (9-44); MONOCYTES 5 % (0-8); NEUTROPHIL # MANUAL DIFF 7.8 TH/MM3 (1.8-7.7); POLYS (SEG NEUTROPHILS) 46 % (16-70)
[2017-10-13] MEDS ORDERED: TOPI25 PO (11:29)
[2017-10-13] MEDS ORDERED: ECASA81 PO (11:29)
[2017-10-13] MEDS ORDERED: VALT500T PO (11:29)
[2017-10-13] MEDS ORDERED: PRED10 PO (11:29)
--- NOTE | 2017-10-13 11:30 | HHI.DCPOC ---
Discharge Care Plan Diagnosis: (1) Cephalgia (2) Right sided weakness (3) Hoffmann's palsy Goals to Promote Your Health * To prevent worsening of your condition and complications * To maintain your health at the optimal level Directions to Meet Your Goals Take your medications as prescribed Follow your dietary instruction Follow activity as directed Keep your appointments as scheduled Take your immunizations and boosters as scheduled If your symptoms worsen call your PCP, if no PCP go to Urgent Care Center or Emergency Room Smoking is Dangerous to Your Health. Avoid second hand smoke Call the 24-hour hour crisis hotline for domestic abuse at Nahun Gomez MD October 13, 2017 11:30
--- NOTE | 2017-10-13 11:32 | HHI.DS ---
Discharge Summary Admission Date October 10, 2017 at 21:50 Discharge Date: October 13, 2017 Admitting Diagnosis Right-sided weakness. Cephalgia. 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 Vaqzuez is a 42-year-old female with no significant medical history who presents to the emergency department on 10/10/2017 due to right-sided weakness and right-sided headache that started on 10/06/2017. On , 10/06/2017 patient started having numbness and weakness of the right side as well as right- sided headache. Upon advice of her primary care physician, she went to a local hospital -[facility] where she was diagnosed with Hoffmann's palsy and was discharged the following day 10/07/2017 on prednisone and gabapentin. Patient does not recall seeing a neurologist. Due to persistent symptoms, patient decided to come to the emergency department. She denies any chest pain , shortness of breath, fever or chills. No changes in bowel or bladder habits. CBC/BMP: 10/13/17 0617 10/13/17 0617 Significant Findings Laboratory Tests Test 10/10/17 18:40 10/12/17 06:19 10/12/17 06:32 10/13/17 06:17 White Blood Count 14.5 TH/MM3 (4.0-11.0) 14.4 TH/MM3 (4.0-11.0) 16.0 TH/MM3 (4.0-11.0) Eosinophils (%) (Auto) 5.0 % (0.0-4.0) Lymphocytes # (Auto) 6.2 TH/MM3 (1.0-4.8) 5.5 TH/MM3 (1.0-4.8) 6.1 TH/MM3 (1.0-4.8) Eosinophils # (Auto) 0.7 TH/MM3 (0-0.4) 0.6 TH/MM3 (0-0.4) Lymphocytes % 45 % (9-44) Activated Partial Thromboplast Time 22.7 SEC (24.3-30.1) Urine Turbidity HAZY (CLEAR) Urine Occult Blood TRACE (NEG) Urine Leukocyte Esterase SMALL (NEG) Urine RBC 4 /hpf (0-3) Urine Calcium Oxalate Crystals MOD /hpf (NONE) Urine Bacteria RARE /hpf (NONE) Urine Mucus FEW /lpf (OCC) Aspartate Amino Transf (AST/SGOT) 44 U/L (15-37) 11 U/L (15-37) 10 U/L (15-37) Alanine Aminotransferase (ALT/SGPT) 95 U/L (10-53) 54 U/L (10-53) Urine Barbiturates Screen POS (NEG) Monocytes # (Auto) 1.0 TH/MM3 (0-0.9) 1.0 TH/MM3 (0-0.9) Eosinophils % 6 % (0-4) Albumin 3.3 GM/DL (3.4-5.0) 3.3 GM/DL (3.4-5.0) Chloride Level 109 MEQ/L (98-107) 112 MEQ/L (98-107) Neutrophils # (Auto) 8.5 TH/MM3 (1.8-7.7) Neutrophils # (Manual) 7.8 TH/MM3 (1.8-7.7) Carbon Dioxide Level 17.5 MEQ/L (21.0-32.0) Imaging Last Impressions Neck Magnetic Resonance Angiography 10/10/17 2256 Signed Impressions: CONCLUSION: 1. Negative MRA carotids. Percent stenosis is calculated using the diameter of the stenotic region over t he diameter of the normal distal internal carotid artery Head Magnetic Resonance Angiography 10/10/171825 Signed Impressions: CONCLUSION: 1. MRA brain within normal limits for age. Chest X-Ray 10/10/171825 Signed Impressions: CONCLUSION: No active disease. Brain MRI 10/10/171825 Signed Impressions: CONCLUSION: 1. Examination within normal limits for age. Cervical Spine MRI 10/10/17 0000 Signed Impressions: CONCLUSION: 1. Negative MRI of the cervical spine with and without contrast. PE at Discharge General: No acute distress. Heart: Regular rate and rhythm. No murmur. Lungs: Clear to auscultation bilaterally. No wheezes, rales, or rhonchi. Breathing is nonlabored. Abdomen: Soft, nontender, nondistended. Extremities: No lower extremity edema. Psych: Alert and oriented. Neuro: Normal speech. Right-sided facial droop is noted. RUE strength decreased compared to LUE. Pt update on day of discharge The patient states that she feels much better today. Strength is improving. Tongue numbness has resolved. Wants to go home. Hospital Course Patient was admitted for right-sided weakness and facial droop. Neurology was consulted. Patient was continued on prednisone, valacyclovir. Topamax was added to treat possible complex migraine. The patient's symptoms improved throughout the hospitalization. She was cleared for discharge by neurology and felt to be stable for discharge home. Pt Condition on Discharge: Stable Discharge Disposition: Discharge Home Discharge Time: <= 30 minutes Discharge Instructions DIET: Follow Instructions for: As Tolerated, No Restrictions Activities you can perform: Regular-No Restrictions Follow up Referrals: Neurology - 2 Weeks with Max Khalil MD PhD PCP Follow-up - 1 Week New Medications: Aspirin DR (Aspirin DR) 81 Mg Tabdr 81 MG PO DAILY for Blood Clot Prevention, #30 TAB 0 Refills Topiramate (Topamax) 25 Mg Tab 25 MG PO Q12HR for Migraines, #60 TAB 0 Refills Valacyclovir (Valtrex) 500 Mg Tab 1000 MG PO Q8HR for Hoffmann's palsy for 10 Days, #30 TAB 0 Refills Changed Medications: Prednisone (Prednisone) 10 Mg Tab 10 MG PO DIRECTED for Inflammation, #30 TAB 0 Refills (Changed from: DAILY) Take 40mg daily for 4 days, 20mg daily for 4 days, 10mg daily for 6 days, then stop. Discontinued Medications: Gabapentin (Gabapentin) 300 Mg Cap 300 MG PO HS, #30 CAP 0 Refills Nahun Gomez MD October 13, 2017 11:32
[2017-10-13 11:46] VITALS: BP 108/58; PULSE 93; RESP 20; TEMP 97.8; O2SAT 95
[2017-10-13 15:14] LABS: CARDIOLIPIN IGG AB <9.4 GPL; CARDIOLIPIN IGM AB <9.4 MPL
[2017-10-14 15:53] LABS: DRVVT 1:1 MIX ND (CORRECTED); DRVVT CONFIRM ND (NEGATIVE); HEXAGONAL PHASE CONFIRM ND (NEGATIVE)
[2017-10-14 18:03] LABS: PROTEIN C ACTIVITY 131 % (70 - 150); PROTEIN S ACTIVITY 110 % (50 - 160)
== END 2017-10-13 12:38 | disposition home or self-care (01) ==
LOC: NEPD 16:39 → NEDA 21:50 → UNDOADMOB 21:53 → NEDA 21:53 → NEPGCP 23:03
PROVIDERS: ADMIT Family Medicine; ATTEND Family Medicine
DX: R51 Headache (principal); R53.1 Weakness; G51.0 Bell's palsy; R20.0 Anesthesia of skin; R20.2 Paresthesia of skin; M54.2 Cervicalgia; R00.0 Tachycardia, unspecified; D72.829 Elevated white blood cell count, unspecified; Z79.899 Other long term (current) drug therapy; R94.31 Abnormal electrocardiogram [ECG] [EKG]
CPT/HCPCS: 70544; 70548; 70553; 71045; 72156; 80053; 80307; 81001; 81240; 81241; 84443; 85007; 85027; 85303; 85306; 85610; 85613; 85652; 85730; 86140; 86147; 93005; 93306; 96361; 96365; 96366; 96375; 97161; 97165; 99285; A9579; G0378; G8987; G8988; G8989; J2060; J2270; J3480; J7030; J7512

== ENCOUNTER 2017-10-26 11:43 | Emergency (ER) | payer MEDICAID ==
[~2017-10-26] VITALS: Ht 157.5 cm; Wt 75.0 kg
[~2017-10-26 11:43] MED LIST: ECASA81 PO; PRED10 PO; TOPI25 PO; VALT500T PO
[2017-10-26 11:52] VITALS: BP 127/65; PULSE 96; RESP 16; TEMP 98.7; O2SAT 99
[2017-10-26] MEDS ORDERED: PROCHLORPERAZINE INJ 10 MG/2 ML VIAL IVP ONE (12:15)
[2017-10-26] MEDS ORDERED: KETOROLAC TROMETHAMINE 30 MG/ML (IVP) VIAL IVP ONE (12:15)
[2017-10-26] MEDS ORDERED: SODIUM CHLORID 0.9% 500 ML INJ 500 ML IV ONE (12:15)
[2017-10-26] MEDS ORDERED: SODIUM CHLORIDE 0.9% FLUSH 10 ML FLUSH IVF PRN (12:15)
[2017-10-26] MEDS ORDERED: diphenhydrAMINE HCL 50 MG/ML VIAL IVP ONE (12:15)
--- NOTE | 2017-10-26 12:24 | PD ---
HPI Chief Complaint: Chest Pain Time Seen by Provider: 11:56 Travel History International Travel<30 days: No Contact w/Intl Traveler<30days: No Traveled to known affect area: No History of Present Illness HPI The patient is a 42-year-old female who presents to the emergency department for complaints of headache and intermittent chest pain. 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 The patient was placed on Topamax for headaches at that time. The patient states she developed a headache yesterday afternoon while running errands. The headache is located in the frontal aspect of the head, radiates to the right eye with mild right eye discomfort and photophobia. She denies any nausea or vomiting. The patient then developed intermittent left-sided chest pain last night. The chest pain is intermittent, sharp to dull, occasionally described as pressure, radiating to the back, occasionally associated with shortness of breath. She denies any nausea, vomiting, or diaphoresis. She does have a history of hyperlipidemia but denies any history of hypertension, tobacco use, diabetes, or known CAD. She does have a family history of heart disease, her brother recently from an [place] in his 50s. Symptoms are moderate. PFSH Past Medical History Cancer: No Cardiovascular Problems: No Endocrine: Yes Genitourinary: No Immune Disorder: No Musculoskeletal: No Neurologic: Yes (BELLS PALSY) Psychiatric: No Reproductive: No Respiratory: No Past Surgical History Cholecystectomy: Yes Social History Alcohol Use: No Tobacco Use: No Substance Use: No Allergies-Medications (Allergen,Severity, Reaction): Coded Allergies: gabapentin (Verified Adverse Reaction, Mild, 10/26/17) Reported Meds & Prescriptions Reported Meds & Active Scripts Active Topamax (Topiramate) 25 Mg Tab 25 Mg PO Q12HR Aspirin DR (Aspirin) 81 Mg Tabdr 81 Mg PO DAILY Review of Systems Except as stated in HPI: all other systems reviewed are Neg General / Constitutional: No: Fever Eyes: Positive: Photophobia, Pain HENT: Positive: Headaches Cardiovascular: Positive: Chest Pain or Discomfort, No: Diaphoresis Respiratory: Positive: Shortness of Breath Gastrointestinal: No: Nausea, Vomiting Neurologic: No: Dizziness Physical Exam Narrative GENERAL: Awake, alert, pleasant 42-year-old female who appears her stated age and is in no acute respiratory distress SKIN: Focused skin assessment warm/dry. HEAD: Atraumatic. Normocephalic. EYES: Pupils equal and round. Pupils are 4 mm bilateral and reactive. EOMs are intact. Patient is able to see fingers at a distance of 2 feet without difficulty. ENT: No nasal bleeding or discharge. Mucous membranes pink and moist. NECK: Trachea midline. No JVD. CARDIOVASCULAR: Regular rate and rhythm. No murmur appreciated. RESPIRATORY: No accessory muscle use. Clear to auscultation. Breath sounds equal bilaterally. GASTROINTESTINAL: Abdomen soft, non-tender, nondistended. MUSCULOSKELETAL: No obvious deformities. No clubbing. No cyanosis. No edema. NEUROLOGICAL: Awake and alert. No obvious cranial nerve deficits. Motor grossly within normal limits. Normal speech. PSYCHIATRIC: Appropriate mood and affect; insight and judgment normal. Data Data Last Documented VS Vital Signs Date Time Temp Pulse Resp B/P (MAP) Pulse Ox O2 Delivery O2 Flow Rate FiO2 10/26/17 14:00 75 18 133/69 (90) 99 Room Air 2.00 10/26/17 11:52 98.7 Orders Orders Ketorolac Inj (Toradol Inj) (10/26/17 12:15) Prochlorperazine Inj (Compazine Inj) (10/26/17 12:15) Diphenhydramine Inj (Benadryl Inj) (10/26/17 12:15) Electrocardiogram (10/26/17 12:12) Ckmb (Isoenzyme) Profile (10/26/17 12:12) Complete Blood Count With Diff (10/26/17 12:12) Comprehensive Metabolic Panel (10/26/17 12:12) D-Dimer (10/26/17 12:12) Magnesium (Mg) (10/26/17 12:12) Prothrombin Time / Inr (Pt) (10/26/17 12:12) Act Partial Throm Time (Ptt) (10/26/17 12:12) Troponin I (10/26/17 12:12) Ecg Monitoring (10/26/17 12:12) Bilateral Bp Monitoring (10/26/17 12:12) Iv Access Insert/Monitor (10/26/17 12:12) Oximetry (10/26/17 12:12) Oxygen Administration (10/26/17 12:12) Sodium Chloride 0.9% Flush (Ns Flush) (10/26/17 12:15) Sodium Chlorid 0.9% 500 Ml Inj (Ns 500 M (10/26/17 12:15) Chest, Pa & Lat (10/26/17 12:12) Troponin I (10/26/17 15:30) Electrocardiogram (10/26/17 15:28) Labs Laboratory Tests Test 10/26/17 12:30 10/26/17 15:36 White Blood Count 10.1 TH/MM3 Red Blood Count 4.32 MIL/MM3 Hemoglobin 13.1 GM/DL Hematocrit 38.5 % Mean Corpuscular Volume 89.1 FL Mean Corpuscular Hemoglobin 30.2 PG Mean Corpuscular Hemoglobin Concent 33.9 % Red Cell Distribution Width 15.0 % Platelet Count 232 TH/MM3 Mean Platelet Volume 8.7 FL Neutrophils (%) (Auto) 51.3 % Lymphocytes (%) (Auto) 36.0 % Monocytes (%) (Auto) 8.1 % Eosinophils (%) (Auto) 4.0 % Basophils (%) (Auto) 0.6 % Neutrophils # (Auto) 5.2 TH/MM3 Lymphocytes # (Auto) 3.6 TH/MM3 Monocytes # (Auto) 0.8 TH/MM3 Eosinophils # (Auto) 0.4 TH/MM3 Basophils # (Auto) 0.1 TH/MM3 CBC Comment DIFF FINAL Differential Comment Prothrombin Time 10.5 SEC Prothromb Time International Ratio 1.0 RATIO Activated Partial Thromboplast Time 24.3 SEC D-Dimer Quantitative (PE/DVT) LESS THAN 0.19 MG/L FEU Blood Urea Nitrogen 8 MG/DL Creatinine 0.73 MG/DL Random Glucose 93 MG/DL Total Protein 7.3 GM/DL Albumin 3.7 GM/DL Calcium Level 9.1 MG/DL Magnesium Level 2.4 MG/DL Alkaline Phosphatase 73 U/L Aspartate Amino Transf (AST/SGOT) 8 U/L Alanine Aminotransferase (ALT/SGPT) 18 U/L Total Bilirubin 0.9 MG/DL Sodium Level 144 MEQ/L Potassium Level 3.3 MEQ/L Chloride Level 113 MEQ/L Carbon Dioxide Level 20.5 MEQ/L Anion Gap 11 MEQ/L Estimat Glomerular Filtration Rate 87 ML/MIN Total Creatine Kinase 81 U/L Troponin I LESS THAN 0.02 NG/ML LESS THAN 0.02 NG/ML MDM Medical Decision Making Medical Screen Exam Complete: Yes Emergency Medical Condition: Yes Medical Record Reviewed: Yes Interpretation(s) EKG reveals sinus rhythm with sinus arrhythmia. No ischemic changes noted. Last Impressions Chest X-Ray 10/26/17 1212 Signed Impressions: CONCLUSION: No active disease. Laboratory Tests Test 10/26/17 12:30 10/26/17 15:36 White Blood Count 10.1 TH/MM3 Red Blood Count 4.32 MIL/MM3 Hemoglobin 13.1 GM/DL Hematocrit 38.5 % Mean Corpuscular Volume 89.1 FL Mean Corpuscular Hemoglobin 30.2 PG Mean Corpuscular Hemoglobin Concent 33.9 % Red Cell Distribution Width 15.0 % Platelet Count 232 TH/MM3 Mean Platelet Volume 8.7 FL Neutrophils (%) (Auto) 51.3 % Lymphocytes (%) (Auto) 36.0 % Monocytes (%) (Auto) 8.1 % Eosinophils (%) (Auto) 4.0 % Basophils (%) (Auto) 0.6 % Neutrophils # (Auto) 5.2 TH/MM3 Lymphocytes # (Auto) 3.6 TH/MM3 Monocytes # (Auto) 0.8 TH/MM3 Eosinophils # (Auto) 0.4 TH/MM3 Basophils # (Auto) 0.1 TH/MM3 CBC Comment DIFF FINAL Differential Comment Prothrombin Time 10.5 SEC Prothromb Time International Ratio 1.0 RATIO Activated Partial Thromboplast Time 24.3 SEC D-Dimer Quantitative (PE/DVT) LESS THAN 0.19 MG/L FEU Blood Urea Nitrogen 8 MG/DL Creatinine 0.73 MG/DL Random Glucose 93 MG/DL Total Protein 7.3 GM/DL Albumin 3.7 GM/DL Calcium Level 9.1 MG/DL Magnesium Level 2.4 MG/DL Alkaline Phosphatase 73 U/L Aspartate Amino Transf (AST/SGOT) 8 U/L Alanine Aminotransferase (ALT/SGPT) 18 U/L Total Bilirubin 0.9 MG/DL Sodium Level 144 MEQ/L Potassium Level 3.3 MEQ/L Chloride Level 113 MEQ/L Carbon Dioxide Level 20.5 MEQ/L Anion Gap 11 MEQ/L Estimat Glomerular Filtration Rate 87 ML/MIN Total Creatine Kinase 81 U/L Troponin I LESS THAN 0.02 NG/ML LESS THAN 0.02 NG/ML Differential Diagnosis Differential diagnosis includes tension headache, migraine, intracranial hemorrhage, glaucoma, temporal arteritis, ACS, pulmonary embolism, pleurisy, GERD, esophageal spasm, pneumonia, pneumothorax. Narrative Course IV was established, labs are drawn and sent, and the patient was placed on cardiac telemetry monitoring and continuous pulse oximetry monitoring. EKG was ordered and interpreted. Chest x-ray was obtained. I reviewed the patient's EMR, the patient was recently hospitalized for strokelike symptoms, diagnosed with Hoffmann's palsy. The patient had multiple CTs and MRIs on previous admission which were negative. The patient's Hoffmann's palsy apparently resolved. She was placed on Topamax for her headaches. The patient was administered Compazine, Benadryl, Toradol for her headache. She was reevaluated at 1:30 PM, her headache had resolved. D-dimer is negative, therefore, no indication for CT pulmonary angiogram. Troponin initially was negative, therefore, 3 hour troponin was ordered. The second troponin was less than 0.03. The patient has atypical chest pain, will be discharged home. She will be prescribed Fioricet as needed headache. She is advised to follow-up with a primary physician and return if symptoms worsen or progress. Diagnosis Primary Impression: Cephalgia Qualified Codes: R51 - Headache Additional Impression: Atypical chest pain Patient Instructions: General Instructions Additional Instructions: Take a baby aspirin daily. Fioricet as needed for headaches. Follow-up with your primary physician. Please provide the patient a copy of her lab results, chest x-ray results, and EKG at discharge. Med/Other Pt SpecificInfo: Prescription(s) given Scripts Cgetvlazri-Vhupovqtlhiax-Ppieiisi (Fioricet) 50-300-40 Mg Cap 1 CAP PO Q4H Y for HEADACHE, #10 CAP 0 Refills Prov: Cooper Monk MD 10/26/17 Disposition: 01 DISCHARGE HOME Condition: Stable Cooper Monk MD Oct 26, 2017 12:23
--- NOTE | 2017-10-26 12:43 | RADRPT ---
EXAM DATE: 10/26/2017 12:41 PM EDT AGE/SEX: 42 years / Female INDICATIONS: Headache and chest pain. CLINICAL DATA: This is the patient's initial encounter. Patient reports that signs and symptoms have been present for 2 days and indicates a pain score of 0/10. MEDICAL/SURGICAL HISTORY: None. None. COMPARISON: No prior exams available for comparison. FINDINGS: PA and lateral views of the chest demonstrate the lungs to be symmetrically aerated without evidence of mass, infiltrate or effusion. The cardiomediastinal contours are unremarkable. Osseous structures are intact. CONCLUSION: No active disease. Electronically signed by: Nikko Aiken MD 10/26/2017 12:42 PM EDT
[2017-10-26 12:52] VITALS: BP 128/67; PULSE 77; RESP 16; RESP 18; O2SAT 100; O2SAT 99
[2017-10-26 12:54] VITALS: BP 117/64; PULSE 85; RESP 23; O2SAT 100
[2017-10-26 13:14] LABS: AUTOMATED NEUTROPHIL # 5.2 TH/MM3 (1.8-7.7); BASOPHIL # 0.1 TH/MM3 (0-0.2); BASOPHIL % 0.6 % (0.0-2.0); EOSINOPHIL # 0.4 TH/MM3 (0-0.4); HEMATOCRIT 38.5 % (35.0-46.0); HEMOGLOBIN 13.1 GM/DL (11.6-15.3); LYMPHOCYTE # 3.6 TH/MM3 (1.0-4.8); MEAN CELL VOLUME 89.1 FL (80.0-100.0); MEAN CORPUSCULAR HEMOGLOBIN 30.2 PG (27.0-34.0); MEAN CORPUSCULAR HGB CONC 33.9 % (32.0-36.0); MEAN PLATELET VOLUME 8.7 FL (7.0-11.0); MONO % 8.1 % (0.0-8.0); MONOCYTE # 0.8 TH/MM3 (0-0.9); NEUT % 51.3 % (16.0-70.0); PLATELET COUNT 232 TH/MM3 (150-450); RED BLOOD COUNT 4.32 MIL/MM3 (4.00-5.30); WHITE BLOOD COUNT 10.1 TH/MM3 (4.0-11.0)
[2017-10-26 13:25] LABS: PROTHROMBIN TIME - PATIENT 10.5 SEC (9.8-11.6)
[2017-10-26 13:26] LABS: D-DIMER LESS THAN 0.19 MG/L FEU (0.00-0.50)
[2017-10-26 13:30] VITALS: BP 116/66; PULSE 75; RESP 18; O2SAT 99
[2017-10-26 13:30] LABS: ALBUMIN 3.7 GM/DL (3.4-5.0); ALT (GPT) 18 U/L (10-53); AST (GOT) 8 U/L (15-37); BICARBONATE 20.5 MEQ/L (21.0-32.0); BLOOD UREA NITROGEN 8 MG/DL (7-18); CALCIUM 9.1 MG/DL (8.5-10.1); CHLORIDE 113 MEQ/L (98-107); CREATININE 0.73 MG/DL (0.50-1.00); GLOMERULAR FILTRATION RATE 87 ML/MIN (>89); GLUCOSE,RANDOM 93 MG/DL (74-106); MAGNESIUM 2.4 MG/DL (1.5-2.5); SODIUM (NA) 144 MEQ/L (136-145)
[2017-10-26 13:34] LABS: ALKALINE PHOSPHATASE 73 U/L (45-117); TOTAL BILIRUBIN ADULT 0.9 MG/DL (0.2-1.0); TOTAL PROTEIN 7.3 GM/DL (6.4-8.2); TROPONIN I LESS THAN 0.02 NG/ML (0.02-0.05)
[2017-10-26 14:00] VITALS: BP 133/69; PULSE 75; RESP 18; O2SAT 99
[2017-10-26] MEDS ORDERED: BUTA1CAP PO (16:37)
[2017-10-26 16:49] VITALS: BP 118/66
--- NOTE | 2017-10-27 18:25 | EKG ---
Date Performed: 10/26/2017 Time Performed: 12:29:27 PTAGE: 42 years EKG: Sinus rhythm WITH SINUS ARRHYTHMIA NORMAL ECG PREVIOUS TRACING : 10/11/2017 15.51 Since the previous tracing, no significant change noted DOCTOR: Erica Dawkins Interpretating Date/Time 10/27/2017 18:24:32
--- NOTE | 2017-10-27 18:27 | EKG ---
Date Performed: 10/26/2017 Time Performed: 15:28:53 PTAGE: 42 years EKG: Sinus rhythm NORMAL ECG PREVIOUS TRACING 10/26/17 @ 12.29 Since the previous tracing, no significant change noted DOCTOR: Erica Dawkins Interpretating Date/Time 10/27/2017 18:25:54
== END 2017-10-26 17:03 | disposition home or self-care (01) ==
LOC: NEPC 11:43
DX: R51 Headache (principal); R07.89 Other chest pain; R06.02 Shortness of breath; H53.149 Visual discomfort, unspecified; H57.11 Ocular pain, right eye; E78.5 Hyperlipidemia, unspecified; Z79.899 Other long term (current) drug therapy
CPT/HCPCS: 71046; 80053; 82550; 83735; 84484; 85025; 85379; 85610; 85730; 93005; 96361; 96374; 96375; 99285; J0780; J1200; J1885; J7040